=== PATIENT | male | born 1995 | race Hispanic/Latino ===

== ENCOUNTER 2021-06-16 22:52 | Emergency (ER) | payer SELFPAY ==
--- OUTSIDE RECORDS SUMMARY | 2021-06-16 23:13 | XMS REPORT | Continuity of Care Document ---
:1995 Author Organization [facility] t Address [address] [place] [address] Care Team Providers Name Role Phone Eduard Barrow Attending Clinician Unavailable Physician, Primary or Family Admitting Clinician Unavailabl e Payers Payer Name Policy Type Policy Number Effective Date Expiration Date S ource Problems This patient has no known problems. Allergies, Adverse Reactions, Alerts Allergy Allergy Status Severity Reaction(s) Onset Inactive Treating Comm ents Source Name Type Date Date Clinician No Known DA Active U 2019-03 [facility] Allerg 04-04 [facility] 00:00: [address] No Known DA Active U 2019-03 [facility] Allerg 04-04 [facility] 00:00: [address] Medications This patient has no known medications. Procedures This patient has no known procedures. Encounters Start End Encounter Admission Attending Care Care Encounter Source Date/Time Date/Time Type Type Clinicians Facility Department ID 2020-02-03 Inpatient [facility] [id number] [facility] 06:39:00 [id number] [facility] 2020-09-01 2020-09-02 Emergency EM Danial [facility] ER [id number] [facility] 23:19:00 02:39:00 Eduard [id number] [facility] Results Test Description Test Time Test Comments Results Result Comments Source Coronavirus 2018 nCoV Bedside 2020-02-03 07:26:00 Test Item Value Reference Range Interpretation Comme nts Coronavirus 2019 nCoV Negative Negative ID NOW COVID-19 assay performed on the Bedside (test code = ID NOW Instrument deysi rapid molecular [id number]) in vitro diagn ostic test utilizing anisothermal nu cleic acid amplification technology inte ndedfor the qualitative detection of nu cleic acid from yueSXOH-AmT-2 v iral RNA in direct nasal, nasophar yngeal orthroat swabs and nasal, naso pharyngeal or throat swabseluted in viral transport media from individual s who aresuspected of COVID-19 by the ir healthcare provider. Results are for the identification of SARS-CoV-2 RNA. For Use Under an Emergency Use A uthorization (EUA) Only Negative result s do not preclude SARS-CoV-2 infe ction andshould not be used as the humaira e basis for patient managementdecis ions. Negative results must be combine d with clinicalobserva tions, patient history, and epidemiolog icalinformation. - XR CHEST 1 [id number] 07:26:00 [facility] 1995 Sex: M Patient Name: ROBERT LYNN Unit No: [id number] EXAMS: CPT CODE: [id number] XR CHEST 1 V [id number] Reason: cough and shortness of breath PROCEDURE INFORMA TION: Exam: XR Chest, 1 View Exam date and time: 02/03/2020 7:00 AM Age: 25 years old Clinical indication: Cough; Additional info: Cough and shortness of breath TECHNIQUE: Imaging protocol: XR of the chest Views: 1 view. COMPARISON:No relevant prior studies available. FINDINGS: Lungs: Unremarkable. No consolidation. Pleural space: Unremarkable. No pleural effusion. No pneumothorax. Heart/Mediastinum: Unremarkable. No cardiomegaly. Bones/joints: Unremarkable. IMPRESSION:No acute findings. INTERNAL CODING PURPOSES ONLY RESULT CODE: CVR at 07 Reported and signed by: Francisco Martin CC: Eduard Barrow MD Technologist: Matthew Flores RT Trscrpt Dt/ ([id number])[id number].VR Orig Print D/T: S: 02/03/2020 (726) [facility] NAME: ROBERT LYNN [address] [facility] PHYS: Eduard Early MD [facility] [place] [address] : 1995 AGE: 25 SEX: M LOC: [facility] PHONE #: [phone] EXAM DATE: 02/03/2020 STATUS: REG FAX #: RAD NO: DC Dt: PAGE 1 Signed Report
--- NOTE | 2021-06-16 23:51 | EDPHYS ---
Physician Documentation [facility] Name: Evans Cm Age: 26 yrs Sex: Male : 1995 Arrival Date: 06/16/2021 Time: 22:58 Bed 20 Private MD: ED Physician Harrison Ferro HPI: 06/16 23:40 This 26 yrs old Male presents to ER via Ambulatory with complaints of jose LACERATION TO FINGER. 23:40 The patient or guardian reports a laceration, irregular. The complaints affect the . jose Context: The problem was sustained at home. Onset: The symptoms/episode began/occurred just prior to arrival. Modifying factors: The symptoms are alleviated by nothing, the symptoms are aggravated by nothing. Associated signs and symptoms: The patient has no apparent associated signs or symptoms. Severity of symptoms: At their worst the symptoms were mild, in the emergency department the symptoms are unchanged. The patient has not experienced similar symptoms in the past. Historical: - Allergies: 23:10 No Known Allergies; ss7 - Home Meds: 23:10 None [Active]; ss7 - PMHx: 23:10 Asthma; ss7 - PSHx: 23:10 None; ss7 - Immunization history:: Client reports having NOT received the Covid vaccine. Flu vaccine is not up to date. - Social history:: Smoking status: Reported history of juuling and/or vaping. - Family history:: not pertinent. ROS: 23:40 Constitutional: Negative for fever, chills, and weight loss, Eyes: Negative for injury, jose pain, redness, and discharge, ENT: Negative for injury, pain, and discharge, Neck: Negative for injury, pain, and swelling, Cardiovascular: Negative for chest pain, palpitations, and edema, Respiratory: Negative for shortness of breath, cough, wheezing, and pleuritic chest pain, Abdomen/GI: Negative for abdominal pain, nausea, vomiting, diarrhea, and constipation, Back: Negative for injury and pain, : Negative for injury, bleeding, discharge, and swelling, Skin: Negative for injury, rash, and discoloration, Neuro: Negative for headache, weakness, numbness, tingling, and seizure, Psych: Negative for depression, anxiety, suicide ideation, homicidal ideation, and hallucinations, Allergy/Immunology: Negative for hives, rash, and allergies, Endocrine: Negative for neck swelling, polydipsia, polyuria, polyphagia, and marked weight changes, Hematologic/Lymphatic: Negative for swollen nodes, abnormal bleeding, and unusual bruising. 23:40 MS/extremity: Positive for laceration, pain, of the palmar aspect of distal phalanx of right index finger. Exam: 23:40 Constitutional: This is a well developed, well nourished patient who is awake, alert, jose and in no acute distress. Head/Face: Normocephalic, atraumatic. Eyes: Pupils equal round and reactive to light, extra-ocular motions intact. Lids and lashes normal. Conjunctiva and sclera are non-icteric and not injected. Cornea within normal limits. Periorbital areas with no swelling, redness, or edema. ENT: Nares patent. No nasal discharge, no septal abnormalities noted. Tympanic membranes are normal and external auditory canals are clear. Oropharynx with no redness, swelling, or masses, exudates, or evidence of obstruction, uvula midline. Mucous membranes moist. Neck: Trachea midline, no thyromegaly or masses palpated, and no cervical lymphadenopathy. Supple, full range of motion without nuchal rigidity, or vertebral point tenderness. No Meningismus. Chest/axilla: Normal chest wall appearance and motion. Nontender with no deformity. No lesions are appreciated. Cardiovascular: Regular rate and rhythm with a normal S1 and S2. No gallops, murmurs, or rubs. Normal PMI, no JVD. No pulse deficits. Respiratory: Lungs have equal breath sounds bilaterally, clear to auscultation and percussion. No rales, rhonchi or wheezes noted. No increased work of breathing, no retractions or nasal flaring. Abdomen/GI: Soft, non-tender, with normal bowel sounds. No distension or tympany. No guarding or rebound. No evidence of tenderness throughout. Back: No spinal tenderness. No costovertebral tenderness. Full range of motion. Male : Normal genitalia with no discharge or lesions. Skin: Warm, dry with normal turgor. Normal color with no rashes, no lesions, and no evidence of cellulitis. Neuro: Awake and alert, GCS 15, oriented to person, place, time, and situation. Cranial nerves II-XII grossly intact. Motor strength 5/5 in all extremities. Sensory grossly intact. Cerebellar exam normal. Normal gait. Psych: Awake, alert, with orientation to person, place and time. Behavior, mood, and affect are within normal limits. 23:40 Musculoskeletal/extremity: ROM: no acute changes, intact in all extremities, full active range of motion, full passive range of motion, Pulses: Sensation intact. Compartment Syndrome exam of affected extremity: is normal. Joints: Vital Signs: 23:10 BP 147 / 73; Pulse 94; Resp 18; Temp 97.1(TE); Pulse Ox 99% ; Weight 117.93 kg; Height ss7 5 ft. 10 in. (177.80 cm); Pain 9/10; 06/17 00:28 BP 140 / 70; Pulse 82; Resp 18; Pulse Ox 100% on R/A; Pain 0/10; maria alejandra 06/16 23:10 Body Mass Index 37.31 (117.93 kg, 177.80 cm) ss7 MDM: 06/16 23:23 Patient medically screened. jose 23:40 Differential diagnosis: contusion, abrasion. Data reviewed: vital signs, nurses notes. jose Data interpreted: potline monitor: not applicable for this patient encounter. Pulse oximetry: on room air is 99 %. Counseling: I had a detailed discussion with the patient and/or guardian regarding: the historical points, exam findings, and any diagnostic results supporting the discharge/admit diagnosis, the need for outpatient follow up, for definitive care, a hand specialist. 06/16 23:40 Order name: Wound dressing; Complete Time: 23:59 jose Administered Medications: 23:57 Drug: Tetanus-Diphtheria Toxoid Adult 0.5 ml {Surgical Orderly: [employer]. Exp: maria alejandra 08/13/2022. Lot #: [id number]. } Route: IM; Site: right deltoid; 06/17 00:25 Follow up: Response: No adverse reaction maria alejandra 06/16 23:59 Drug: Neosporin (tvttcknb-nsserkzdij-mpsnbhjnn) Ointment 1 application Route: Topical; maria alejandra Site: left hand; 06/17 00:26 Follow up: Response: No adverse reaction maria alejandra 00:00 Drug: Motrin (ibuprofen) 800 mg Route: PO; maria alejandra 00:26 Follow up: Response: Pain is decreased maria alejandra Disposition Summary: 06/16/21 23:50 Discharge Ordered Location: Home jose Problem: new jose Symptoms: have improved jose Condition: Stable jose Diagnosis - Laceration without foreign body of right hand - SHAVE INJURY jose Followup: jose - With: Private Physician - When: 2 - 3 days - Reason: Recheck today's complaints, Continuance of care, Re-evaluation by your physician Followup: jose - With: Amish Perkins MD - When: 2 - 3 days - Reason: Recheck today's complaints, Continuance of care, Re-evaluation by your physician Discharge Instructions: - Discharge Summary Sheet jose - Laceration Care, Adult jose - Laceration Care, Adult, Pfeo-ci-Kefx jose Forms: - Medication Reconciliation Form jose - Thank You Letter jose - Antibiotic Education jose - Prescription Opioid Use jose Prescriptions: - Tylenol-Codeine #3 300 mg-30 mg Oral - take 2 tablet by ORAL route every 6 hours; 20 tablet; Refills: 0, Product jose Selection Permitted Signatures: Harrison Ferro MD MD cha O'Farrell, Brenda RN Marilee Eaton RN RN ss7
--- NOTE | 2021-06-16 23:51 | ER ---
Nurse's Notes [facility] Name: Evans Cm Age: 26 yrs Sex: Male : 1995 Arrival Date: 06/16/2021 Time: 22:58 Bed 20 Private MD: Diagnosis: Laceration without foreign body of right hand-SHAVE INJURY Presentation: 06/16 23:07 Chief complaint: Patient states: Cutting onion and cut a piece of the left 2nd digit ss7 off, 1 hour [employer]. Pt unable to stop the bleeding. Tetanus out of date. Coronavirus screen: Vaccine status: Patient reports being unvaccinated. Ebola Screen: No symptoms or risks identified at this time. Initial Sepsis Screen: Does the patient meet any 2 criteria? No. Patient's initial sepsis screen is negative. Does the patient have a suspected source of infection? No. Patient's initial sepsis screen is negative. Risk Assessment: Do you want to hurt yourself or someone else? Patient reports no desire to harm self or others. Onset of symptoms was June 16, 2021 at 22:00. 23:07 Method Of Arrival: Ambulatory ss7 23:07 Acuity: YESICA 4 ss7 Triage Assessment: 23:10 General: Appears in no apparent distress. Behavior is calm, cooperative, appropriate ss7 for age. 06/17 00:28 Pain: Denies pain. maria alejandra Historical: - Allergies: 06/16 23:10 No Known Allergies; ss7 - Home Meds: 23:10 None [Active]; ss7 - PMHx: 23:10 Asthma; ss7 - PSHx: 23:10 None; ss7 - Immunization history:: Client reports having NOT received the Covid vaccine. Flu vaccine is not up to date. - Social history:: Smoking status: Reported history of juuling and/or vaping. - Family history:: not pertinent. Screenin:11 Abuse screen: Denies threats or abuse. Nutritional screening: No deficits noted. ss7 Tuberculosis screening: No symptoms or risk factors identified. Fall Risk None identified. Assessment: 23:15 Reassessment: Patient appears in no apparent distress at this time. No changes from maria alejandra previously documented assessment. 23:44 Reassessment: I recv'd the pt to room 2315, with an avulsion to the tip of his left maria alejandra index finger. The pt was applying pressure. He was in NAD. . 06/17 00:26 Reassessment: The pt's index finger on his left hand was cleaned with iodine and NS, maria alejandra triple abx placed, 2x2 and a pressure dressing. He tolerated this well. Vital Signs: 06/16 23:10 BP 147 / 73; Pulse 94; Resp 18; Temp 97.1(TE); Pulse Ox 99% ; Weight 117.93 kg; Height ss7 5 ft. 10 in. (177.80 cm); Pain 9/10; 06/17 00:28 BP 140 / 70; Pulse 82; Resp 18; Pulse Ox 100% on R/A; Pain 0/10; maria alejandra 06/16 23:10 Body Mass Index 37.31 (117.93 kg, 177.80 cm) ss7 ED Course: 06/16 22:58 Patient arrived in ED. ag3 23:10 Triage completed. ss7 23:10 Arm band placed on right wrist. ss7 23:11 Patient has correct armband on for positive identification. Bed in low position. Call ss7 light in reach. 23:11 No provider procedures requiring assistance completed. Patient did not have IV access ss7 during this emergency room visit. 23:23 Harrison Ferro MD is Attending Physician. jose 23:43 Constance Brennan RN is Primary Nurse. maria alejandra 23:46 Amish Perkins MD is Referral Physician. [facility] Administered Medications: 23:57 Drug: Tetanus-Diphtheria Toxoid Adult 0.5 ml {[employer]: [employer]. Exp: maria alejandra 08/13/2022. Lot #: [id number]. } Route: IM; Site: right deltoid; 06/17 00:25 Follow up: Response: No adverse reaction maria alejandra 06/16 23:59 Drug: Neosporin (cdhrcahd-iqphnosfso-giqiezrmn) Ointment 1 application Route: Topical; maria alejandra Site: left hand; 06/17 00:26 Follow up: Response: No adverse reaction maria alejandra 00:00 Drug: Motrin (ibuprofen) 800 mg Route: PO; maria alejandra 00:26 Follow up: Response: Pain is decreased maria alejandra Outcome: 06/16 23:46 Condition: stable maria alejandra 23:50 Discharge ordered by . [facility] 06/17 00:28 Discharged to home ambulatory. maria alejandra Discharge instructions given to patient, Instructed on discharge instructions, follow up and referral plans. medication usage, wound care, Demonstrated understanding of instructions, follow-up care, medications, wound care, Prescriptions given X 1. 00:29 Patient left the ED. maria alejandra Signatures: Harrison Ferro MD MD cha Gomez, Alice ag3 Constance Brennan, RN RN Marilee An RN RN ss7
[2021-06-16] MEDS ORDERED: TETANUS & DIPHTHERIA TOX,ADULT 0.5 ML VIAL ONE (23:54)
[2021-06-16] MEDS ORDERED: IBUPROFEN 400 MG TAB ONE (23:56)
[2021-06-17 01:22] VITALS: TEMP 97.1
[2021-06-17 01:26] VITALS: BP 140/70; O2SAT 100
== END 2021-06-17 00:29 | disposition home or self-care (01) ==
LOC: ER 22:52
DX: S61.210A Laceration without foreign body of right index finger without damage to nail, initial encounter (principal); W26.0XXA Contact with knife, initial encounter; Y93.G3 Activity, cooking and baking
CPT/HCPCS: 90471; 90714; 99283